=== PATIENT | female | born 1960 | race Caucasian/White ===

== ENCOUNTER 2020-01-02 20:29 | Emergency (ER) | payer MEDICAID ==
[~2020-01-02] VITALS: Ht 167.6 cm; Wt 101.9 kg
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
[2020-01-02 21:39] VITALS: BP 151/82
== END 2020-01-02 21:41 | disposition home or self-care (01) ==
LOC: ED 21:26
DX: G89.11 Acute pain due to trauma (principal); M25.512 Pain in left shoulder; Y08.89XA Assault by other specified means, initial encounter; Y93.89 Activity, other specified; Y92.512 Supermarket, store or market as the place of occurrence of the external cause; Y99.8 Other external cause status
CPT/HCPCS: 99283

== ENCOUNTER → 2020-08-09 | Outpatient (CLI) | payer MEDICAID | END | disposition home or self-care (01) | LOC: CARD 08:49 | PROVIDERS: ATTEND Family Medicine | DX: I10 Essential (primary) hypertension (principal); R07.9 Chest pain, unspecified | CPT/HCPCS: 93017 ==